=== PATIENT | female | born 1965 | race African-American/Black ===

== ENCOUNTER 2019-08-15 03:31 | Emergency (ER) | payer SELFPAY ==
[~2019-08-15] VITALS: Ht 162.6 cm; Wt 59.0 kg
[2019-08-15] MEDS ORDERED: ONDANSETRON HCL 4MG/2ML INJ IV STA (04:14)
[2019-08-15] MEDS ORDERED: SODIUM CHLORIDE 0.9% 1,000 ML IV ONE (04:14)
[2019-08-15] MEDS ORDERED: KETOROLAC 30MG/ML VIAL IV STA (04:14)
[2019-08-15 05:32] LABS: KETONES URINE NEGATIVE (NEGATIVE); LEUKOCYTE ESTERASE URINE NEGATIVE (NEGATIVE); NITRITE URINE NEGATIVE (NEGATIVE); OCCULT BLOOD URINE 3+ (NEGATIVE); PROTEIN URINE 2+ (NEGATIVE); SPECIFIC GRAVITY URINE 1.011 (1.005-1.030)
[2019-08-15 05:33] LABS: HEMATOCRIT. 26.6 % (36.0-48.0); HEMOGLOBIN. 8.1 g/dL (12.0-16.0); MEAN CORPUSCULAR HEMOGLOBIN 20.4 pg (28.0-32.0); MEAN CORPUSCULAR VOLUME 66.9 fL (81.0-99.0); MEAN PLATELET VOLUME 8.5 fl (7.4-10.4); PLATELET 555 x1000/uL (130-400); RED BLOOD CELL COUNT 3.98 mill/uL (4.2-5.4)
[2019-08-15 05:33] LABS: CLARITY URINE CLOUDY (CLEAR); COLOR URINE BLOODY (YELLOW)
[2019-08-15 05:34] LABS: CHLORIDE 100 mEq/L (98-107)
[2019-08-15 05:43] LABS: *AMPHETAMINES SCREEN URINE NEGATIVE (NEGATIVE); *BARBITURATES SCREEN URINE NEGATIVE (NEGATIVE); *BENZODIAZEPINES SCREEN URINE NEGATIVE (NEGATIVE)
[2019-08-15 05:44] LABS: *COCAINE SCREEN URINE PRESUMTIVE POSITIVE (NEGATIVE); CANNABINOID URINE SCREEN PRESUMTIVE POSITIVE (NEGATIVE); METHADONE URINE SCREEN NEGATIVE (NEGATIVE); OPIATES URINE SCREEN NEGATIVE (NEGATIVE); PHENCYCLIDINE URINE SCREEN NEGATIVE (NEGATIVE)
[2019-08-15] MEDS ORDERED: CEFTRIAXONE 1 G PREMIX 50 ML IV ONE (06:15)
[2019-08-15 06:55] LABS: PLATELET ESTIMATE INCREASED
[2019-08-15] MEDS ORDERED: IOHEXOL-300 100 ML BOTTLE ONE (07:08)
[2019-08-15] MEDS ORDERED: IPRATROPIUM BROMIDE (0.02%) 0.5MG/2.5ML NEB HHN STA (12:22)
[2019-08-15] MEDS ORDERED: ALBUTEROL (0.083%) 2.5MG/3ML NEB HHN STA (12:22)
[2019-08-15 14:36] VITALS: BP 153/91
== END 2019-08-15 14:42 | disposition home or self-care (01) ==
LOC: ER 03:31
DX: R11.10 Vomiting, unspecified (principal); R10.9 Unspecified abdominal pain; I10 Essential (primary) hypertension; J44.9 Chronic obstructive pulmonary disease, unspecified; Z87.828 Personal history of other (healed) physical injury and trauma
CPT/HCPCS: 36415; 74177; 76830; 76856; 80053; 80305; 81003; 81025; 85025; 87086; 96361; 96365; 96375; 99284; J0696; J1885; J2405; J7030; Q9967; J7611

== ENCOUNTER 2019-09-10 06:47 | Inpatient (IN) | payer MEDICAID ==
[~2019-09-10] VITALS: Ht 160 cm; Wt 68.5 kg
[2019-09-10] MEDS ORDERED: MAGNESIUM/ALUMINUM HYDROXIDE/SIMETHICONE 30ML UDC PO ONE (08:15)
[2019-09-10] MEDS ORDERED: VISCOUS LIDOCAINE 2% 15 ML UDC PO ONE (08:15)
[2019-09-10] MEDS ORDERED: FAMOTIDINE 20MG/2ML VIAL IV ONE (08:15)
[2019-09-10 08:25] LABS: CHLORIDE 104 mEq/L (98-107)
[2019-09-10 08:26] LABS: MEAN CORPUSCULAR HEMOGLOBIN 18.2 pg (28.0-32.0); MEAN CORPUSCULAR VOLUME 61.7 fL (81.0-99.0); MEAN PLATELET VOLUME 8.6 fl (7.4-10.4); PLATELET 388 x1000/uL (130-400); RED BLOOD CELL COUNT 3.12 mill/uL (4.2-5.4); RED CELL DISTRIBUTION WIDTH 27.7 % (11.6-14.6)
[2019-09-10 08:43] LABS: HEMATOCRIT. 19.2 % (36.0-48.0); HEMOGLOBIN. 5.7 g/dL (12.0-16.0)
[2019-09-10 09:15] LABS: PLATELET ESTIMATE NORMAL
[2019-09-10] MEDS ORDERED: MORPHINE SULFATE 4 MG/ML CPJ (NOT FOR IM USE) IV ONE (09:30)
[2019-09-10 18:25] VITALS: BP 170/85
[2019-09-10 18:44] LABS: CLARITY URINE TURBID (CLEAR); COLOR URINE YELLOW (YELLOW); KETONES URINE NEGATIVE (NEGATIVE); LEUKOCYTE ESTERASE URINE 2+ (NEGATIVE); NITRITE URINE NEGATIVE (NEGATIVE); OCCULT BLOOD URINE 1+ (NEGATIVE); PH URINE 6.5 (4.5-8.0); PROTEIN URINE 2+ (NEGATIVE); SPECIFIC GRAVITY URINE 1.016 (1.005-1.030); UROBILINOGEN URINE 0.2 E.U./dL (0.2-1.0)
[2019-09-10] MEDS ORDERED: NITROGLYCERIN 0.4MG TABLET SL SL PRN (19:00)
[2019-09-10 20:00] VITALS: BP 139/69
[2019-09-10] MEDS ORDERED: MORPHINE SULFATE 2 MG/ML CPJ (NOT FOR IM USE) IV PRN (20:15)
[2019-09-10] MEDS: AMLODIPINE 10MG TABLET PO SCH (21:59)
[2019-09-10] MEDS: METOPROLOL TARTRATE 50MG TABLET PO SCH (22:00)
[2019-09-11] VITALS: BP 140/81
[2019-09-11 01:36] LABS: HEMATOCRIT 24.9 % (36.0-48.0); HEMOGLOBIN 7.7 g/dL (12.0-16.0); MEAN CORPUSCULAR HEMOGLOBIN 21.1 pg (28.0-32.0); MEAN CORPUSCULAR VOLUME 68.2 fL (81.0-99.0); PLATELET 358 x1000/uL (130-400); RED BLOOD CELL COUNT 3.65 mill/uL (4.2-5.4)
[2019-09-11 04:00] VITALS: BP 152/80
[2019-09-11 06:37] LABS: CHLORIDE 104 mEq/L (98-107)
[2019-09-11 06:49] LABS: HEMATOCRIT. 26.2 % (36.0-48.0); HEMOGLOBIN. 8.2 g/dL (12.0-16.0); MEAN CORPUSCULAR HEMOGLOBIN 21.3 pg (28.0-32.0); MEAN PLATELET VOLUME 8.6 fl (7.4-10.4); PLATELET 356 x1000/uL (130-400); RED BLOOD CELL COUNT 3.85 mill/uL (4.2-5.4); RED CELL DISTRIBUTION WIDTH 32.6 % (11.6-14.6)
[2019-09-11 08:00] VITALS: BP 155/92
[2019-09-11] MEDS ORDERED: ASPIRIN 325MG EC TABLET PO SCH (09:00)
[2019-09-11] MEDS: METOPROLOL TARTRATE 50MG TABLET PO SCH (09:33)
[2019-09-11] MEDS: AMLODIPINE 10MG TABLET PO SCH (09:34)
[2019-09-11] MEDS ORDERED: CEFTRIAXONE 1 G PREMIX 50 ML IV SCH (10:30)
[2019-09-11 12:00] VITALS: BP 148/89
[2019-09-11 12:33] LABS: TOTAL IRON BINDING CAPACITY 429 ug/dL (250-450)
[2019-09-11] MEDS ORDERED: FUROSEMIDE 40MG/4ML VIAL IVP NR (12:45)
[2019-09-11] MEDS ORDERED: IPRATROPIUM/ALBUTEROL 0.5-3(2.5)MG/3ML NEB HHN PRN (13:00)
[2019-09-11] MEDS ORDERED: BUDESONIDE 0.5MG/2ML NEB HHN SCH (13:00)
[2019-09-11 13:04] VITALS: BP 155/92
[2019-09-12 10:31] LABS: PLATELET ESTIMATE NORMAL
== END 2019-09-11 15:21 | disposition home or self-care (01) | DRG 198 ==
LOC: ER 06:47 → EDBEDREQTM 12:43 → EDBEDREQ 12:43 → ENRESERV 17:03 → 7WST 18:33
PROVIDERS: ADMIT Internal Medicine; ATTEND Internal Medicine
PROC: 30233N1 Transfusion of Nonautologous Red Blood Cells into Peripheral Vein, Percutaneous Approach (ICD-10-PCS; principal; 2019-09-10)
DX: I24.8 Other forms of acute ischemic heart disease (principal); I50.41 Acute combined systolic (congestive) and diastolic (congestive) heart failure; I11.0 Hypertensive heart disease with heart failure; D25.9 Leiomyoma of uterus, unspecified; D64.9 Anemia, unspecified; E87.6 Hypokalemia; F17.210 Nicotine dependence, cigarettes, uncomplicated; J44.9 Chronic obstructive pulmonary disease, unspecified; J98.11 Atelectasis; K59.00 Constipation, unspecified; N39.0 Urinary tract infection, site not specified; F10.20 Alcohol dependence, uncomplicated; Z88.8 Allergy status to other drugs, medicaments and biological substances
CPT/HCPCS: 36415; 71045; 74176; 80053; 80061; 81003; 82728; 83540; 83550; 83880; 84443; 84484; 85025; 85027; 86850; 86900; 86920; 93005; 93306; 99285; J0696; J2270; J3490; P9016; P9021